=== PATIENT | male | born 1970 | race Hispanic/Latino ===

== ENCOUNTER 2017-10-29 09:54 | Observation (INO) | payer MEDICARE, MEDICAID ==
[2017-10-24 14:52] VITALS: BMI 23.8
--- NOTE | 2017-10-29 13:07 | CP.PCM.PN ---
Subjective - Date & Time of Evaluation Date of Evaluation: 10/29/17 Time of Evaluation: 13:06 - Subjective Subjective: 47 y/o male seen in [facility] prior to right foot surgery. Pt says he is not in any pain and his dressing remains intact since his last visit with Dr. Lorenzo. Confirms NPO status after midnight last night except for a small sip of water with meds this morning. Denies any F/C/N/V/CP/SOB. Understands he may be admitted for observation. Is aware of possible wound vac placement PMHx: DM, atrial fibrillation, CKD s/p transplant PSH: I&D of right foot gas gangrene (10/14/17); renal transplant, several prior reconstructive LE ankle and foot surgeries All: NKDA SocHx: denies EtOH, cigarette or illicit drug use FamHx: denies hx of heart dz, cancer, HTN Objective - Vital Signs/Intake and Output Vital Signs (last 24 hours): Temp Pulse Resp BP Pulse Ox 98.6 F 68 18 121/75 98 10/29/17 12:13 10/29/17 12:23 10/29/17 12:13 10/29/17 12:13 10/29/17 12:13 - Constitutional Appears: Well, Non-toxic, No Acute Distress - Extremities Exam Additional comments: dressing clean/dry/intact to RLE with no strikethrough - Neurological Exam Neurological Exam: Alert, Awake, Oriented x3 - Psychiatric Exam Psychiatric exam: Normal Affect, Normal Mood Assessment and Plan - Assessment and Plan (Free Text) Assessment: 47 y/o male with right foot 4th digit and partial ray gangrene, to go to OR today for partial 4th ray amputation Plan: Pt was seen and examined in [facility] Pt NPO status was confirmed All pre-op testing and clearance in chart Pt has exhausted all conservative treatment at this time and is opting for surgical intervention Pt was explained procedure and post-operative course All pt's questions were answered to satisfaction No guarantees were made Pt understands all risks, benefits and complications of procedure Pt will follow-up with Dr. Lorenzo within 1 week of surgery
--- NOTE | 2017-10-29 13:10 | CP.SDSHP ---
Same Day Surgery H & P - History Proposed Procedure: right foot partial 4th ray amputation with wound vac application Pre-Op Diagnosis: right foot gangrenous 4th digit with gangrenous changes to 4th ray - Previous Medical/Surgical History Endocrine/Metabolic: Diabetes, Renal Disease Pain: 0. No Pain Previous Surgical History: kidney transplant, I&D right foot gas gangrene, several reconstructive ankle and foot surgeries to RLE - Allergies Allergies: Allergies No Known Allergies Allergy (Verified 10/13/17 12:19) - Physical Exam Vital Signs: Vital Signs 10/29/17 10/29/17 12:13 12:23 Temperature 98.6 F Pulse Rate 68 68 Respiratory 18 Rate Blood Pressure 121/75 O2 Sat by Pulse 98 Oximetry Mental Status: Alert & Oriented x3 - {Optional Preform as Required} Integument: Other (right foot gangrene 4th toe - dressing clean dry and intact on arrival) Ortho: Other (no pain to right foot) - Impression Impression: Pt was seen and examined in [facility]. Pt NPO status was confirmed. All pre-op testing and clearance in chart. Pt has exhausted all conservative treatment at this time and is opting for surgical intervention. Pt was explained procedure and post-operative course. All pt's questions were answered to satisfaction. No guarantees were made. Pt understands all risks, benefits and complications of procedure. Pt will follow-up with Dr. Lorenzo within 1 week of surgery - Date & Time Date: 10/29/17 Time: 13:20 Short Stay Discharge - Short Stay Discharge Admitting Diagnosis/Reason for Visit: A48.0 Disposition: TRANS TO OBS Referrals: Odin Babin MD [Primary Care Provider] - Additional Instructions (Diet, Activity): Pt to remain NWB to RLE with use of axillary crutches Pt will remain in house with wound vac in place to R foot Pt will be monitored under observation in hospital Podiatry will follow while in house Upon discharge, pt to follow up with Dr. Lorenzo in his office within one week Progress Note/Discharge Note with Instructions: -Pt to resume medications per medical reconciliation Please keep dressing clean, dry, & intact to surgical site -Use plastic bag over bandage for showering
[2017-10-29] MEDS ORDERED: Bupivacaine 0.5% Inj(30mL) IJ ONE (13:11)
[2017-10-29] MEDS ORDERED: Lidocaine 2% Inj (20ml) ONE (14:32)
[2017-10-29] MEDS ORDERED: Bacitracin Ointment 30 GM TUBE ONE (14:33)
[2017-10-29] MEDS ORDERED: Mineral Oil Light Sterile 25 ml ONE (14:33)
[2017-10-29] MEDS ORDERED: ceFAZolin IV 1 gm in Dextrose 2 GM/100 ML BAG IVPB ONE (14:33)
[2017-10-29] MEDS ORDERED: Bupivacaine 0.5% Inj(30mL) ONE (14:33)
[2017-10-29] MEDS ORDERED: Midazolam 2 MG/2 ML VIAL ONE (14:40)
[2017-10-29] MEDS ORDERED: Propofol 10 mg/ml Inj (20 ML) ONE (14:40)
[2017-10-29] MEDS ORDERED: Lactated Ringer's 1,000 ML IV ONE ×2 (14:53→17:50)
[2017-10-29] MEDS ORDERED: ePHEDrine 50 mg/ml Inj ONE (15:48)
[2017-10-29] MEDS ORDERED: Oxycodone/Acetaminophen 5/325 mg Tab PO PRN ×2 (16:01)
--- NOTE | 2017-10-29 16:06 | PCM.SURG1 ---
Surgeon's Initial Post Op Note - Surgeon's Notes Surgeon: Dr. Ilya Lorenzo DPM Editorial Cartoonist: Dr. Jacqueline Hartley DPM PGY-1; Dr. Xiomy Jones DPM PGY-1 Mohit Aragon MS-4 Type of Anesthesia: IV Sedation, Local Anesthesia Administered By: Dr. Ric ROSE Pre-Operative Diagnosis: Right forefoot infection with Osteomyelitis Operative Findings: See dictation. M: Wound vac. I: 13 cc of 0.5% marcaine plain - pre-op. T: 24 min Post-Operative Diagnosis: Same Operation Performed: Right partial 4th ray resection with removal of all non- viable soft tissue and bone with application of wound vac Specimen/Specimens Removed: 4th digit and metatarsal head. Proximal margin: Metatarsal neck. Deep wound cultures Estimated Blood Loss: EBL {In ML}: 5 Blood Products Given: N/A Drains Used: No Drains Post-Op Condition: Good Date of Surgery/Procedure: 10/29/17 Time of Surgery/Procedure: 16:07
--- NOTE | 2017-10-29 17:51 | RAD ---
PROCEDURE: Right Foot Radiographs. HISTORY: s/p right foot surgery COMPARISON: 10/09/2016 FINDINGS: BONES: Neuropathic/Charcot foot and ankle. Evidence of triple arthrodesis identified. There is evidence of hardware failure, disruption of the plate anchored to the distal femur at and tarsal bones. This represents a new finding compared to the prior study. JOINTS: Chronic findings/neuropathic foot. SOFT TISSUES: Normal. OTHER FINDINGS: None. IMPRESSION: Hardware failure not seen previously. Soy remarked
--- NOTE | 2017-10-29 19:44 | CP.PCM.HP ---
History of Present Illness - History of Present Illness History of Present Illness: 47 y/o male with PMHx of DM type 1, ESRD secondary to DM s/p kidney transplant 6 years ago, HTN, hypercholesterolemia, GERD admitted with Right forefoot infection with Osteomyelitis, now s/p right partial 4th ray resection with removal of all non-viable soft tissue and bone with application of wound vac by podiatry team on POD #0. Patient ween and examined at bedside after surgery, denies pain at this evaluation. Denies chest pain, SOB, N/V, abdominal pain or other complains. Tolerating PO after surgery. Urinating after surgery. Not yet passing gases and/or bowel movements after surgery. Full CODE PMD: at [facility]/Dr. Talley: [phone] Boiler House Operator: Dr. Silva Diabetic doctor: Dr. Kraft PMHx: DM type 1, ESRD secondary to DM s/p kidney transplant 6 years ago, HTN, hypercholesterolemia, GERD PSH: I&D of right foot gas gangrene (10/14/17); renal transplant, several prior reconstructive LE ankle and foot surgeries All: NKDA SocHx: Denies tabacco use, ETOH and/or illicit drugs FamHx: Mother: /Breast cancer, Father: /Lung cancer Meds: as per [facility] records Present on Admission - Present on Admission Any Indicators Present on Admission: No History of DVT/PE: No History of Uncontrolled Diabetes: No Urinary Catheter: No Decubitus Ulcer Present: No Review of Systems - Review of Systems All systems: reviewed and no additional remarkable complaints except (as per HPI ) Past Patient History - Infectious Disease Hx of Infectious Diseases: None - Tetanus Immunizations Tetanus Immunization: Unknown - Past Medical History & Family History Past Medical History?: Yes - Past Social History Smoking Status: Never Smoked - CARDIAC Hx Cardiac Disorders: Yes Hx Hypercholesterolemia: Yes Hx Hypertension: Yes Hx Peripheral Edema: Yes Hx Peripheral Vascular Disease: Yes Other/Comment: cva-1 month ago - PULMONARY Hx Respiratory Disorders: No - NEUROLOGICAL Hx Neurological Disorder: No Hx Seizures: No (denies) - HEENT Hx HEENT Problems: Yes (EYE SX O.U) - RENAL Hx Chronic Kidney Disease: Yes ([employer] TRANSPL[employer] 2010) Hx Renal Failure: Yes Other/Comment: RENAL DISEASE(KIDEY TRANSPLANT) 2011 - ENDOCRINE/METABOLIC Hx Endocrine Disorders: Yes Hx Diabetes Mellitus Type 1: Yes (since 13yo.) Hx Diabetes Mellitus Type 2: Yes - HEMATOLOGICAL/ONCOLOGICAL Hx Blood Disorders: No Hx Blood Transfusions: No - INTEGUMENTARY Hx Dermatological Problems: Yes Other/Comment: SCARRING TO BILATERAL FOOT. - MUSCULOSKELETAL/RHEUMATOLOGICAL Hx Musculoskeletal Disorders: Yes (RIGHT FOOT AND LEFT FOOT SX-R FOOT ORIF,) Hx Arthritis: Yes Hx Back Pain: Yes Hx Falls: No Hx Osteoarthritis: Yes Other/Comment: CHARCOT FOOT - GASTROINTESTINAL Hx Gastrointestinal Disorders: Yes Hx Gastroesophageal Reflux: Yes (GERD) - GENITOURINARY/GYNECOLOGICAL Hx Genitourinary Disorders: Yes Hx Hematuria: Yes - PSYCHIATRIC Hx Emotional Abuse: No Hx Physical Abuse: No - SURGICAL HISTORY Hx Surgeries: Yes Hx Eye Surgery: Yes Hx Kidney Transplant: Yes (2010) Hx Musculoskeletal Surgery: Yes (RIGHT FOOT AND ANKLE X7) Hx Open Reduction Internal Fixation: (RIGHT FT W/ SCREW FIXATION) Hx Orthopedic Surgery: Yes (LEFT & RIGHT FOOT SURGERY ) Hx Tonsillectomy: Yes Other/Comment: Right foot - ANESTHESIA Hx Anesthesia: Yes Hx Anesthesia Reactions: No Hx Malignant Hyperthermia: No Has any member of the family had a problem w/ anesthesia?: No Meds Allergies/Adverse Reactions: Allergies Allergy/AdvReac Type Severity Reaction Status Date / Time No Known Allergies Allergy Verified 10/13/17 12:19 Physical Exam - Constitutional Appears: Non-toxic, No Acute Distress - Eye Exam Eye Exam: Normal appearance - ENT Exam ENT Exam: Mucous Membranes Moist - Respiratory Exam Respiratory Exam: Clear to Auscultation Bilateral, NORMAL BREATHING PATTERN. absent: Rales, Rhonchi, Wheezes, Respiratory Distress - Cardiovascular Exam Cardiovascular Exam: REGULAR RHYTHM, RRR, +S1, +S2. absent: Gallop, Rubs - GI/Abdominal Exam GI & Abdominal Exam: Normal Bowel Sounds, Soft. absent: Guarding, Rebound, Rigid, Tenderness - Extremities Exam Extremities exam: Negative for: calf tenderness, pedal edema - Neurological Exam Neurological exam: Alert, Oriented x3 - Psychiatric Exam Psychiatric exam: Normal Affect, Normal Mood - Skin Skin Exam: Dry, Intact, Pallor Results - Vital Signs Recent Vital Signs: Last Vital Signs Temp 97.7 F 10/29/17 19:18 Pulse 76 10/29/17 19:18 Resp 20 04/02/18 19:18 BP 164/96 H 10/29/17 19:18 Pulse Ox 96 10/29/17 19:18 - Labs Labs: Laboratory Results - last 24 hr 10/29/17 10/29/17 11:42 16:06 POC Glucose (mg/dL) 148 H 177 H Assessment & Plan - Assessment and Plan (Free Text) Assessment: 47 y/o male with PMHx of DM type 1, ESRD secondary to DM s/p kidney transplant 6 years ago, HTN, hypercholesterolemia, GERD admitted with Right forefoot infection with Osteomyelitis, now s/p scheduled right partial 4th ray resection with removal of all non-viable soft tissue and bone with application of wound vac. Plan: S/P right partial 4th ray resection -MedSur unit -with removal of all non-viable soft tissue and bone with application of wound vac by podiatry team -check VS Q8 -pain control -daily wound assessment and care by podiatry team -no on prophylactic antibiotics for now as per podiatry team -F/U wound culture results -start DVT prophylaxis tomorrow morning as per podiatry team recommendations -F/U CBC and BMP in AM -incentive spirometer Diabetes Mellitus type 1 -started at age 13 -insulin dependent -accucheck ACHS -resume home insulin -diabetic diet -hypoglycemic protocol S/P Kidney transplant -c/w home immunosuppresant therapy -c/w Tacrolimus and Mycophenolate BID -c/w prednisone 5 mg PO -f/u BMP in AM HTN -c/w home propranolol BID -f/u BP DVT prophylaxis -start DVT prophylaxis tomorrow morning as per podiatry team recommendations -based on renal function in BMP will start Lovenox or Heparin -SCDs for now - Date & Time Date: 10/29/17 Time: 19:45
[2017-10-29] MEDS ORDERED: Glucagon Recombinant 1 mg Inj IM PRN (19:46)
[2017-10-29] MEDS ORDERED: Dextrose 50% SYRINGE Inj (50 ml) IV PRN (19:46)
[2017-10-29] MEDS ORDERED: Pneumococcal 23-Valent Vaccine IM ONE (20:00)
[2017-10-29] MEDS ORDERED: Calcium-Vit D 500 mg-200 Units Tab UD PO SCH (20:00)
[2017-10-29] MEDS: Insulin Detemir 100 Units/ml Inj SC SCH (20:50)
[2017-10-29] MEDS ORDERED: MYCOPHENOLATE SODIUM PO SCH (21:00)
[2017-10-29 21:51] VITALS: RESP 20
[2017-10-30 06:47] LABS: BASO # 0.1 K/uL (0.0-0.2); BASO % 0.8 % (0.0-2.0); EOS # 0.1 K/uL (0.0-0.7); EOS % 1.7 % (0.0-4.0); HEMOGLOBIN 10.7 g/dL (12.0-18.0); LYMPH # 1.7 K/uL (1.0-4.3); MEAN CELL VOLUME 81.8 fl (80.0-94.0); MEAN CORPUSCULAR HEMOGLOBIN 26.7 pg (27.0-31.0); MEAN CORPUSCULAR HGB CONC 32.6 g/dL (33.0-37.0); MONO # 0.6 K/uL (0.0-0.8); NEUT % 66.5 % (50.0-75.0); RED CELL DISTRIBUTION WIDTH 16.3 % (11.5-14.5); WHITE BLOOD COUNT 7.5 K/uL (4.8-10.8)
[2017-10-30 07:03] LABS: CALCIUM 9.5 mg/dL (8.4-10.2)
--- NOTE | 2017-10-30 08:24 | CP.PCM.PN ---
Subjective - Date & Time of Evaluation Date of Evaluation: 10/30/17 Time of Evaluation: 08:24 - Subjective Subjective: 47 y/o male seen and examined at bedside this morning, 1 day s/p right foot partial 4th ray amputation. Pt resting comfortably in bed in NAD. Says he slept well and denies any events overnight. Denies F/C/N/V/CP/SOB. States he has no pain in the right foot. Wound vac has been running without any difficulty and he says it has remained in place since his surgery. Objective - Vital Signs/Intake and Output Vital Signs (last 24 hours): Temp Pulse Resp BP Pulse Ox 98.5 F 74 20 131/81 99 10/30/17 08:22 10/30/17 08:22 10/30/17 08:22 10/30/17 08:22 10/30/17 08:22 - Medications Medications: Current Medications Acetaminophen (Tylenol 325mg Tab) 650 mg PO Q4 PRN PRN Reason: Pain, Mild (1-3) Aspirin (Ecotrin) 81 mg PO QPM [facility] Atorvastatin Calcium (Lipitor) 40 mg PO DAILY [facility] Calcium/Vitamin D (Oyster Shell Calcium/Vitamin D 500 Mg-200 Iu) 1 tab PO BID [facility] Clopidogrel Bisulfate (Plavix) 75 mg PO DAILY [facility] Dextrose (Dextrose 50% Inj) 0 ml IV STAT PRN; Protocol PRN Reason: Hypoglycemia Protocol Dextrose (Glutose 15) 0 gm PO ONCE PRN; Protocol PRN Reason: Hypoglycemia Protocol Glucagon (Glucagen Diagnostic Kit) 0 mg IM STAT PRN; Protocol PRN Reason: Hypoglycemia Protocol Heparin Sodium (Porcine) (Heparin) 5,000 units SC Q12 [facility] PRN Reason: Protocol Home Med (Mycophenolate Sodium [Myfortic]) 2 tab PO BID [facility] Insulin Detemir (Levemir) 20 units SC BID [facility] Last Admin: 10/29/17 20:50 Dose: 20 units Insulin Human Lispro (Humalog) 7 units SC BID [facility] Multivitamins/Minerals (Therapeutic-M Tab) 1 tab PO DAILY [facility] Oxycodone/Acetaminophen (Percocet 5/325 Mg Tab) 1 tab PO Q4 PRN PRN Reason: Pain, moderate (4-7) Stop: 11/01/17 16:02 Oxycodone/Acetaminophen (Percocet 5/325 Mg Tab) 2 tab PO Q4 PRN PRN Reason: Pain, severe (8-10) Stop: 11/01/17 16:02 Prednisone (Prednisone Tab) 5 mg PO DAILY [facility] Propranolol HCl (Inderal) 10 mg PO HS [facility] Last Admin: 10/29/17 21:05 Dose: 10 mg Propranolol HCl (Inderal) 10 mg PO AC [facility] Tacrolimus (Prograf Cap) 2 mg PO BID [facility] Last Admin: 10/29/17 20:53 Dose: 2 mg - Labs Labs: 10/30/17 05:30 10/30/17 05:30 - Constitutional Appears: Well, Non-toxic, No Acute Distress - Extremities Exam Additional comments: Dressing clean dry and intact to R foot Wound vac running on continuous 125mm Hg Wound vac drainage output at 10cc - Neurological Exam Neurological Exam: Alert, Awake, Oriented x3 - Psychiatric Exam Psychiatric exam: Normal Affect, Normal Mood Assessment and Plan - Assessment and Plan (Free Text) Assessment: 47 y/o male 1 day s/p right foot partial 4th ray amputation with wound vac application Plan: Pt seen and evaluated at bedside Labs and vitals reviewed- afebrile, WBC 7.5 Wound vac to remain in place today - continue 125mmHg continuous pressure Vac to be changed q48-72 hours by visiting nurses Pt stable for discharge from podiatry standpoint Pt to keep dressing clean dry and intact with vac running at all times until VNS comes to change it Pt to follow up with Dr. Lorenzo in his office within 1 week of discharge
--- NOTE | 2017-10-30 08:30 | CP.PCM.PN ---
Subjective - Date & Time of Evaluation Date of Evaluation: 10/30/17 Time of Evaluation: 08:30 - Subjective Subjective: Patient seen and examined this morning at bedside, sleeping comfortable on bed, no acute overnight event. S/p SDS right foot partial 4th ray amputation with wound vac application on 10/29. Patient denies pain, chills, nausea, vomiting, states good appetite, no chest pain or abdominal pain, palpitations. Objective - Vital Signs/Intake and Output Vital Signs (last 24 hours): Temp Pulse Resp BP Pulse Ox 98.5 F 74 20 131/81 99 10/30/17 08:22 10/30/17 08:22 10/30/17 08:22 10/30/17 08:22 10/30/17 08:22 - Medications Medications: Current Medications Acetaminophen (Tylenol 325mg Tab) 650 mg PO Q4 PRN PRN Reason: Pain, Mild (1-3) Aspirin (Ecotrin) 81 mg PO QPM [facility] Atorvastatin Calcium (Lipitor) 40 mg PO DAILY [facility] Calcium/Vitamin D (Oyster Shell Calcium/Vitamin D 500 Mg-200 Iu) 1 tab PO BID [facility] Clopidogrel Bisulfate (Plavix) 75 mg PO DAILY [facility] Dextrose (Dextrose 50% Inj) 0 ml IV STAT PRN; Protocol PRN Reason: Hypoglycemia Protocol Dextrose (Glutose 15) 0 gm PO ONCE PRN; Protocol PRN Reason: Hypoglycemia Protocol Glucagon (Glucagen Diagnostic Kit) 0 mg IM STAT PRN; Protocol PRN Reason: Hypoglycemia Protocol Heparin Sodium (Porcine) (Heparin) 5,000 units SC Q12 [facility] PRN Reason: Protocol Home Med (Mycophenolate Sodium [Myfortic]) 2 tab PO BID [facility] Insulin Detemir (Levemir) 20 units SC BID [facility] Last Admin: 10/29/17 20:50 Dose: 20 units Insulin Human Lispro (Humalog) 7 units SC BID [facility] Multivitamins/Minerals (Therapeutic-M Tab) 1 tab PO DAILY [facility] Oxycodone/Acetaminophen (Percocet 5/325 Mg Tab) 1 tab PO Q4 PRN PRN Reason: Pain, moderate (4-7) Stop: 11/01/17 16:02 Oxycodone/Acetaminophen (Percocet 5/325 Mg Tab) 2 tab PO Q4 PRN PRN Reason: Pain, severe (8-10) Stop: 04/05/18 16:02 Prednisone (Prednisone Tab) 5 mg PO DAILY [facility] Propranolol HCl (Inderal) 10 mg PO HS [facility] Last Admin: 10/29/17 21:05 Dose: 10 mg Propranolol HCl (Inderal) 10 mg PO AC [facility] Tacrolimus (Prograf Cap) 2 mg PO BID [facility] Last Admin: 10/29/17 20:53 Dose: 2 mg - Labs Labs: 10/30/17 05:30 10/30/17 05:30 - Constitutional Appears: Well, No Acute Distress - Head Exam Head Exam: NORMAL INSPECTION - Eye Exam Eye Exam: EOMI, PERRL - Respiratory Exam Respiratory Exam: Clear to Ausculation Bilateral, NORMAL BREATHING PATTERN. absent: Rales, Rhonchi, Wheezes - Cardiovascular Exam Cardiovascular Exam: REGULAR RHYTHM, +S1, +S2. absent: Tachycardia - GI/Abdominal Exam GI & Abdominal Exam: Soft, Normal Bowel Sounds. absent: Distended, Tenderness - Extremities Exam Extremities Exam: absent: Calf Tenderness Additional comments: Right foot dressing clean, intact. Wound vac in place, functioning well. - Neurological Exam Neurological Exam: Awake, CN II-XII Intact, Oriented x3 - Psychiatric Exam Psychiatric exam: Normal Affect Assessment and Plan - Assessment and Plan (Free Text) Assessment: 47 y/o male with PMHx of DM type 1, ESRD secondary to DM s/p kidney transplant 6 years ago, HTN, hypercholesterolemia, GERD admitted with Right forefoot infection with Osteomyelitis, now s/p scheduled right partial 4th ray resection with removal of all non-viable soft tissue and bone with application of wound vac. POD 1. Plan: 1- S/P right partial 4th ray resection - removal of all non-viable soft tissue and bone with application of wound vac by podiatry team - pain control with Percocet - daily wound assessment and care by podiatry team - no on prophylactic antibiotics for now as per podiatry team - F/U wound culture results - start DVT prophylaxis today as per podiatry team recommendations - incentive spirometer - CBC: wbc 7.5, H/H 10.7/32.7 Plt 601 2- Diabetes Mellitus type 1 -accucheck ACHS -resume home insulin -diabetic diet -hypoglycemic protocol 3- S/P Kidney transplant -c/w home immunosuppresant therapy -c/w Tacrolimus and Mycophenolate BID -c/w prednisone 5 mg PO -BUN/Creatinine: 25/1.8 4- HTN, controlled -c/w home propranolol BID -f/u BP 5 DVT prophylaxis - Start Heparin 5000 units SC Q12
[2017-10-30] MEDS: Calcium-Vit D 500 mg-200 Units Tab UD PO SCH ×2 (08:33→17:02)
[2017-10-30] MEDS: Insulin Lispro (humaLOG) 100 Units/ml Inj SC SCH ×2 (08:34→17:02)
[2017-10-30] MEDS ORDERED: Multivitamin With Minerals Tab PO SCH (09:00)
[2017-10-30] MEDS: Insulin Detemir 100 Units/ml Inj SC SCH ×2 (11:56→17:02)
[2017-10-30 14:11] VITALS: PULSE 73
--- NOTE | 2017-10-30 16:14 | CP.PCM.DIS ---
Provider - Provider Date of Admission: 10/29/17 17:26 Attending physician: Renetta Peres MD Primary care physician: Odin Babin MD Time Spent in preparation of Discharge (in minutes): 20 Diagnosis - Discharge Diagnosis (1) Osteomyelitis of foot Status: Acute Hospital Course - Lab Results Lab Results: Most Recent Lab Values WBC 7.5 K/uL (4.8-10.8) 10/30/17 05:30 RBC 4.00 Mil/uL (4.40-5.90) L 10/30/17 05:30 Hgb 10.7 g/dL (12.0-18.0) L 10/30/17 05:30 Hct 32.7 % (35.0-51.0) L 10/30/17 05:30 MCV 81.8 fl (80.0-94.0) 10/30/17 05:30 MCH 26.7 pg (27.0-31.0) L 10/30/17 05:30 MCHC 32.6 g/dL (33.0-37.0) L 10/30/17 05:30 RDW 16.3 % (11.5-14.5) H 10/30/17 05:30 Plt Count 601 K/uL (130-400) H D 10/30/17 05:30 MPV 8.0 fl (7.2-11.7) 10/30/17 05:30 Neut % (Auto) 66.5 % (50.0-75.0) 10/30/17 05:30 Lymph % (Auto) 23.0 % (20.0-40.0) 10/30/17 05:30 [place] % (Auto) 8.0 % (0.0-10.0) 10/30/17 05:30 Eos % (Auto) 1.7 % (0.0-4.0) 10/30/17 05:30 Baso % (Auto) 0.8 % (0.0-2.0) 10/30/17 05:30 Neut # (Auto) 5.0 K/uL (1.8-7.0) 10/30/17 05:30 Lymph # (Auto) 1.7 K/uL (1.0-4.3) 10/30/17 05:30 [place] # (Auto) 0.6 K/uL (0.0-0.8) 10/30/17 05:30 Eos # (Auto) 0.1 K/uL (0.0-0.7) 10/30/17 05:30 Baso # (Auto) 0.1 K/uL (0.0-0.2) 10/30/17 05:30 Sodium 139 mmol/l (132-148) 10/30/17 05:30 Potassium 4.8 MMOL/L (3.6-5.0) 10/30/17 05:30 Chloride 100 mmol/L (98-107) 10/30/17 05:30 Carbon Dioxide 33 mmol/L (22-30) H 10/30/17 05:30 Anion Gap 11 (10-20) 10/30/17 05:30 BUN 25 mg/dl (9-20) H 10/30/17 05:30 Creatinine 1.8 mg/dl (0.8-1.5) H 10/30/17 05:30 Est GFR ( Amer) 49 10/30/17 05:30 Est GFR (Non-Af Amer) 41 10/30/17 05:30 POC Glucose (mg/dL) 69 mg/dL (65-110) 10/30/17 12:04 Random Glucose 124 mg/dL (75-110) H 10/30/17 05:30 Calcium 9.5 mg/dL (8.4-10.2) 10/30/17 05:30 - Hospital Course Hospital Course: 47 y/o male with PMHx of DM type 1, ESRD secondary to DM s/p kidney transplant 6 years ago, HTN, hypercholesterolemia, GERD admitted with Right forefoot infection with Osteomyelitis, now s/p right partial 4th ray resection with removal of all non-viable soft tissue and bone. Pt stable. Home PT eval. Pt to follow up in 1 week with podiatry: Dr. Lorenzo. Discharge Exam - Head Exam Head Exam: NORMAL INSPECTION Discharge Plan - Follow Up Plan Condition: GOOD Disposition: HOME/ ROUTINE Patient education suggested?: Yes Instructions: Amputation of the Foot or Toe, Negative Pressure Wound Therapy Additional Instructions: Pt to remain NWB to RLE with use of axillary crutches Pt will remain in house with wound vac in place to R foot Pt will be monitored under observation in hospital Podiatry will follow while in house Upon discharge, pt to follow up with Dr. Lorenzo in his office within one week Home PT evaluation Pt declined pain meds Referrals: Odin Babin MD [Primary Care Provider] - Ilya Lorenzo DPM [Staff Provider] -
[2017-10-30 16:57] VITALS: BP 140/86; TEMP 97.9; O2SAT 97
--- NOTE | 2017-10-31 23:51 | OP ---
PROCEDURE DATE: 10/29/2017 PREOPERATIVE DIAGNOSIS: Right fourth partial ray gangrene. POSTOPERATIVE DIAGNOSIS: Right fourth partial ray gangrene. NAME OF PROCEDURE: Right foot partial fourth ray resection with removal of all nonviable soft tissue and removal of bone with application of wound vacuum assisted closure. SURGEON: Ilya Lorenzo DPM ASSISTANTS: Jacqueline Hartley DPM, PGY1 and Clement Jones DPM, PGY1. TYPE OF ANESTHESIA: IV sedation with local. ANESTHESIA ADMINISTERED BY: Yamel Larios MD INDICATION: The patient is a 47-year-old male with the above diagnosis. The patient has exhausted all conservative treatment at this time and now requires surgical intervention. The patient signed the consent after careful explanation of risks, benefits, complications, and alternatives for the surgical procedure. N.p.o. status was confirmed prior to taking the patient to the operating room. No guarantees were given nor implied. PREPARATION: The patient was brought into the operating room table and placed on the table in the supine position. A time-out was performed for identification of the correct patient and the procedure. The patient received a total of 13 mL of 0.5% Marcaine plain in the local V block fashion. Once the local anesthesia was achieved, the right foot was then prepped and draped in a normal sterile manner and procedure began. Ankle tourniquet was applied to the right ankle prior to starting the procedure. DESCRIPTION OF PROCEDURE: Attention was directed to the patient's right foot in which with the use of #15 blade, all circumferential incision was made around the fourth ray on the periphery of the necrotic tissue. Incision was deepened through the subcutaneous tissue using the same blade down to the level of the MTPJ. At this time, the fourth digit was disarticulated at the level of MTPJ. Next, utilizing a periosteal elevator, all the periosteal tissue was carefully dissected off the metatarsal head. At this time using a sagittal saw, the fourth metatarsal head was resected with the dorsal distal to plantar proximal angle and was then passed off the field and sent to pathology along with the fourth digit with metatarsal neck was resected and was sent to pathology for the proximal margin. All the remaining nonviable necrotic tissue was removed from the surgical site and was passed off the operating field to the pathology. was used to remove excess nonviable tissue from the surgical site and site was then flushed with bacitracin-induced pulse lavage. Deep wound cultures were taken at this time and was sent off the operative field. A wound VAC was applied to the surgical site at the time using black foam and Tegaderm tape. The surgical site was then dressed with sterile gauze and Kerlix. Tourniquet was deflated at 24 minutes. POSTOPERATIVE CONDITION: The patient tolerated the anesthesia and procedure well and was escorted to the recovery room with vital signs stable and neurovascular status intact to the right foot. The patient is nonweightbearing to the right lower extremity. The patient will be admitted to the floor where Podiatry will follow up the patient closely. Upon discharge, the patient is to follow up with Dr. Ilya Lorenzo in his office. Jacqueline Hartley DPM Ilya Lorenzo DPM
== END 2017-10-30 18:20 | disposition home health service (06) ==
LOC: H.OPSURG 09:54 → H.MEDSURG1 17:26
PROVIDERS: ADMIT Family Medicine; ATTEND Family Medicine
DX: E10.69 Type 1 diabetes mellitus with other specified complication (principal); M86.171 Other acute osteomyelitis, right ankle and foot; E10.51 Type 1 diabetes mellitus with diabetic peripheral angiopathy without gangrene; E10.610 Type 1 diabetes mellitus with diabetic neuropathic arthropathy; E78.00 Pure hypercholesterolemia, unspecified; I12.0 Hypertensive chronic kidney disease with stage 5 chronic kidney disease or end stage renal disease; K21.9 Gastro-esophageal reflux disease without esophagitis; N18.6 End stage renal disease; Z79.4 Long term (current) use of insulin; Z80.1 Family history of malignant neoplasm of trachea, bronchus and lung; Z80.3 Family history of malignant neoplasm of breast; Z86.73 Personal history of transient ischemic attack (TIA), and cerebral infarction without residual deficits; Z94.0 Kidney transplant status; A48.0 Gas gangrene; M19.90 Unspecified osteoarthritis, unspecified site; E10.22 Type 1 diabetes mellitus with diabetic chronic kidney disease; Z23 Encounter for immunization
CPT/HCPCS: 28810; 36415; 73630; 80048; 82948; 85025; 87070; 88304; 88305; 90732; 97161; 97605; G0009; G0378; G8978; G8979; J0690; J1644; J2001; J2250; J2270; J2405; J2704; J2765; J3010; J7030; J7120; J7507

== ENCOUNTER 2017-12-21 08:23 | Day surgery (SDC) | payer MEDICARE, MEDICAID ==
[2017-10-24 14:52] VITALS: BMI 23.8
--- NOTE | 2017-12-21 09:22 | CP.SDSHP ---
Same Day Surgery H & P - History Proposed Procedure: Right 5th digit arthroplasty with complex wound closure, wound debridement with PuraPly graft Pre-Op Diagnosis: Right foot nonhealing wound - Previous Medical/Surgical History Cardiac: Hypertension Endocrine/Metabolic: Diabetes, Renal Disease Misc: Other (HLD) Previous Surgical History: kidney transplant, I&D right foot gas gangrene, several reconstructive ankle and foot surgeries to RLE - Allergies Allergies: Allergies No Known Allergies Allergy (Verified 12/21/17 08:33) - Current Medications Current Medications: see chart - Physical Exam Vital Signs: Vital Signs 12/21/17 12/21/17 08:58 09:04 Temperature 98.1 F Pulse Rate 88 88 Respiratory 14 Rate Blood Pressure 121/70 O2 Sat by Pulse 98 Oximetry Mental Status: Alert & Oriented x3 Neuro: WNL Heart: WNL Lungs: WNL GI: WNL - {Optional Preform as Required} Ortho: Other (No pain on palpation, dressing to right foot clean/dry/intact) - Impression Impression: Pt was seen and examined in SDS. Pt NPO status was confirmed. All pre-op testing and clearance in chart. Pt has exhausted all conservative treatment at this time and is opting for surgical intervention. Pt was explained procedure and post-operative course. All pt's questions were answered to satisfaction. No guarantees were made. Pt understands all risks, benefits and complications of procedure. Pt will follow-up with Dr. Lorenzo within 1 week of surgery Pt. Evaluated Today:Candidate for Anesthesia & Procedure: Yes - Date & Time Date: 12/21/17 Time: 09:22 Short Stay Discharge - Short Stay Discharge Admitting Diagnosis/Reason for Visit: T81.31XA, M20.41, E11.62 Disposition: HOME/ ROUTINE Referrals: Odin Babin MD [Primary Care Provider] - Follow-up: Follow up with Dr. Lorenzo in office Sunday12/26/17 Additional Instructions (Diet, Activity): -Patient in good/stable condition for discharge home -Pt to resume medications per medical reconciliation -Resume regular diet Please keep dressing clean, dry, & intact to surgical site -Use plastic bag over bandage for showering -Wear post op shoe at all times when ambulating -Call clinic if you see signs of infection (redness, swelling, malodor) -Please make an appointment to see Dr. Lorenzo within 1 week for post-op check Progress Note/Discharge Note with Instructions: - Patient evaluated bedside in recovery s/p surgical procedure. - After surgical procedure patient in NAD - (+) Void, (+) Appetite - Capillary refill time <3s and NVSI intact. - Patient denies complaints at this time - Post operative instructions and plan of care explained to patient at length. - Pt. acknowledges understanding. - Patient stable for DC per podiatric surgery
--- NOTE | 2017-12-21 09:25 | CP.PCM.PN ---
Subjective - Date & Time of Evaluation Date of Evaluation: 12/21/17 Time of Evaluation: 09:22 - Subjective Subjective: Podiatry - Dr. Lorenzo 47 y/o male seen in [facility] for pre-operative evaluation for right foot surgery with Dr. Lorenzo this AM. At present, patient denies any pain to his right foot today. Patient has remained intact since his last appointment with Dr. Lorenzo on Sunday. NPO confirmed; states he did not take his blood pressure medication this AM. Denies N/V/F/D/C/SOB/SINHA/dizziness. PMHx: DM, atrial fibrillation, CKD s/p transplant PSH: I&D of right foot gas gangrene (10/14/17); renal transplant, several prior reconstructive LE ankle and foot surgeries All: NKDA SocHx: denies EtOH, cigarette or illicit drug use FamHx: denies hx of heart dz, cancer, HTN Objective - Vital Signs/Intake and Output Vital Signs (last 24 hours): Temp Pulse Resp BP Pulse Ox 98.1 F 88 14 121/70 98 12/21/17 08:58 12/21/17 09:04 12/21/17 08:58 12/21/17 08:58 12/21/17 08:58 - Constitutional Appears: Well, Non-toxic, No Acute Distress - Extremities Exam Additional comments: Dressing to right foot clean/dry/intact - Neurological Exam Neurological Exam: Alert, Awake, Oriented x3 - Psychiatric Exam Psychiatric exam: Normal Affect, Normal Mood Assessment and Plan - Assessment and Plan (Free Text) Assessment: 47 year old male with nonhealing wound right foot Plan: Pt was seen and examined in [facility] Pt NPO status was confirmed All Pre-op testing and clearance was in the chart Pt has exhausted all conservative treatment at this time and is opting for surgical intervention Pt was explained procedure and post-operative course All pt's questions were answered to satisfaction No guarantees were made Pt understands all risks, benefits and complications of procedure Pt will follow-up with Dr. Lorenzo in office
[2017-12-21] MEDS ORDERED: ceFAZolin IV 2 gm in Dextrose 2 GM/50 ML BAG IVPB ONE (09:26)
[2017-12-21] MEDS ORDERED: Bupivacaine 0.5% Inj(30mL) IJ ONE ×3 (09:26→13:00)
[2017-12-21] MEDS ORDERED: Lidocaine 1% Inj (20ml) IJ ONE (09:26)
[2017-12-21] MEDS ORDERED: Dextrose 5%/0.9% NS 1,000 ML IV SCH (09:30)
[2017-12-21] MEDS ORDERED: Lidocaine 2% Inj (20ml) ONE (10:01)
[2017-12-21] MEDS ORDERED: Bupivacaine HCl 0.5% PF (30 ml) Inj ONE (10:01)
[2017-12-21 11:52] LABS: BASO # 0.1 K/uL (0.0-0.2); BASO % 0.9 % (0.0-2.0); EOS # 0.5 K/uL (0.0-0.7); EOS % 7.3 % (0.0-4.0); HEMOGLOBIN 10.7 g/dL (12.0-18.0); LYMPH # 1.8 K/uL (1.0-4.3); LYMPH % 24.2 % (20.0-40.0); MEAN CELL VOLUME 81.4 fl (80.0-94.0); MEAN CORPUSCULAR HEMOGLOBIN 26.2 pg (27.0-31.0); MEAN CORPUSCULAR HGB CONC 32.2 g/dL (33.0-37.0); MEAN PLATELET VOLUME 8.3 fl (7.2-11.7); MONO # 0.6 K/uL (0.0-0.8); MONO % 7.9 % (0.0-10.0); NEUT # 4.4 K/uL (1.8-7.0); NEUT % 59.7 % (50.0-75.0); RBC 4.09 Mil/uL (4.40-5.90); RED CELL DISTRIBUTION WIDTH 16.1 % (11.5-14.5); WHITE BLOOD COUNT 7.4 K/uL (4.8-10.8)
[2017-12-21 12:11] LABS: PROTHROMBIN TIME 10.5 Seconds (9.8-13.1)
[2017-12-21] MEDS ORDERED: ePHEDrine 50 mg/ml Inj ONE (12:46)
[2017-12-21] MEDS ORDERED: Propofol 10 mg/ml Inj (20 ML) ONE ×2 (12:46→12:53)
[2017-12-21] MEDS ORDERED: Midazolam 2 MG/2 ML VIAL ONE (12:47)
[2017-12-21] MEDS ORDERED: Lactated Ringer's 1,000 ML IV ONE ×2 (13:00→15:00)
[2017-12-21] MEDS ORDERED: Oxycodone/Acetaminophen 5/325 mg Tab PO PRN ×2 (14:30)
--- NOTE | 2017-12-21 14:32 | PCM.SURG1 ---
Surgeon's Initial Post Op Note - Surgeon's Notes Surgeon: Dr. Lorenzo Digital Sales Manager: Marybeth Bermudez PGY1, Marybeth Kelly PGY1 Type of Anesthesia: IV Sedation, Local (17cc 0.5% marcaine plain) Anesthesia Administered By: Dr. Castellano Pre-Operative Diagnosis: 1) Right foot nonhealing diabetic ulceration. 2) Right foot surgical wound Operative Findings: See operative report. Materials: PuraPly 6 x 9 cm, 3-0 nylon, 4-0 nylon, 4-0 vicryl Post-Operative Diagnosis: Same Operation Performed: 1) Right foot wound debridement with application of allograft. 2) Right foot 5th digit arthroplasty. 3) Right foot complex wound closure Specimen/Specimens Removed: none Estimated Blood Loss: EBL {In ML}: 20 Blood Products Given: N/A Drains Used: No Drains Post-Op Condition: Good Date of Surgery/Procedure: 12/21/17 Time of Surgery/Procedure: 14:28
[2017-12-21] MEDS ORDERED: HYDROmorphone 0.5 mg/0.5 ml ISec IVP PRN (14:36)
--- NOTE | 2017-12-21 15:40 | RAD ---
PROCEDURE: Right Foot Radiographs. HISTORY: s/p right 5th digit hammertoe correction COMPARISON: 10/29/2017. FINDINGS: BONES: There is redemonstration of neuropathic/Charcot foot or ankle. There is evidence of triple arthrodesis with stable appearance of hardware. Status post resection of mid 4th metatarsal and 4th toe. JOINTS: Chronic findings. SOFT TISSUES: There is diffuse soft tissue swelling lateral to the 5th metatarsal. OTHER FINDINGS: None. IMPRESSION: Soft tissue swelling lateral to the 5th metatarsal. No other significant interval change.
[2017-12-21 16:46] VITALS: BP 128/70; PULSE 85; RESP 18; TEMP 97.6; O2SAT 98
--- NOTE | 2017-12-25 08:45 | OP ---
PROCEDURE DATE: 12/21/2017 PREOPERATIVE DIAGNOSES: 1. Right foot nonhealing diabetic ulceration. 2. Right foot nonhealing surgical wound. POSTOPERATIVE DIAGNOSES: 1. Right foot nonhealing diabetic ulceration. 2. Right foot nonhealing surgical wound. NAME OF PROCEDURE: 1. Right foot wound debridement with application of allograft. 2. Right foot fifth digit arthroplasty. 3. Right foot complex wound closure. SURGEON: Ilya Lorenzo DPM ASSISTANTS: Lynnette Bermudez DPM, PGY1, Dr. Alexander Kelly, PGY1. TYPE OF ANESTHESIA: IV sedation plus local. ANESTHESIA ADMINISTERED BY: Dr. Castellano. INDICATIONS: The patient is a 47-year-old male with the above diagnoses. The patient has exhausted all conservative treatment at this time and now requires surgical intervention. The patient has signed a consent after careful explanation of risks, benefits, complications, and alternatives for surgical procedure. No guarantees were given nor implied. PREPARATION: The patient was brought into the operating room table and placed on the operating room table in a supine position. A well padded pneumatic ankle tourniquet was applied to the patient's right ankle in the supramalleolar position. A time-out was performed for identification of the correct patient and procedure. After induction of IV sedation, the patient received a total of 7 mL of 0.5% Marcaine plain in a ring block fashion to the plantar midfoot as well as a V block fashion to the right foot fifth digit. Once local anesthesia was achieved, the right foot was then prepped and draped in normal sterile manner. The patient's right foot was then exsanguinated and then pneumatic ankle tourniquet was inflated to 250 mmHg and the procedure begun. DESCRIPTION OF PROCEDURE: Procedure #1: Attention was directed to the plantar midfoot where a circular ulceration measuring approximately 4 cm in diameter was noted. It was evident that there was an extra fibrotic and necrotic tissue with biofilm formation within the wound bed. At this time, the Misonix probe was utilized to excisionally debride all nonviable fibrotic and necrotic tissue from the wound bed with the Misonix setting on the level 10. Additionally, a sterile forceps and sterile #15 blade was utilized to excise all necrotic and nonviable tissue from the wound border. The wound was then copiously irrigated with Bacitracin infusion and was then utilizing a pulse lavage system. The Misonix and pulse lavage was then redirected to a second additional ulceration noted at the plantar aspect of the right foot fourth interspace measuring approximately 2 cm wide x 4 cm in length x approximately 0.3 cm in depth. Once again a Misonix probe was utilized on setting 10 to excisionally debride all nonviable fibrotic and necrotic tissue from the fourth interspace wound bed down to healthy bleeding granular tissue. A pulse lavage was then utilized to copiously irrigate the site with Bacitracin infused sterile saline solution. Procedure #2. Right foot fifth digit arthroplasty. Attention was then directed to the dorsal lateral aspect of the right foot fifth digit where it was noted that the fifth digit was curving in an adductovarus position and placing pressure on the plantar fourth interspace ulceration. Thereby decreasing the chances for healing. At this time, a semi-elliptical incision was made from the distal medial to proximal lateral aspect of the dorsal proximal interphalangeal joint at the right foot fifth digit. The incision was deepened to the subcutaneous tissue with care being taken to identify and retract all vital neurovascular structures. All bleeders were cauterized and ligated as necessary. At this time, it was noted that the pneumatic ankle tourniquet was not providing adequate exsanguination and the tourniquet was deflated at this time. Next, a transverse tenotomy and capsulotomy was performed using proximal interphalangeal joint of the right foot fifth digit. The head of the proximal joint was then freed with capsular and ligament attachment. Next, using a sagittal saw, the head of the proximal phalanx was resected and passed from the operative site. A bone grasp was utilized to smooth the surface of the remaining proximal phalanx. At this time, 4-0 Vicryl sutures were utilized to reapproximate the extensor tendon. A 4-0 nylon sutures were then utilized to reapproximate skin. Procedure #3: Attention was then directed to the plantar fourth interspace with the right foot where an ulceration measuring approximately 2 cm wide x 4 cm in length x 0.5 cm in depth was noted. Following the previous procedure of the right foot fifth digit arthroplasty of the proximal interphalangeal joint, it was evident that this complex wound could be partially closed under minimal tension. The proximal lateral aspect of the wound exhibited healthy wound borders. A sterile 15 blade was utilized to make a 1.5 cm incision extending proximally. A second incision was made measuring 1.5 cm, made approximately 1 cm lateral to the previously mentioned incision. At this time, this newly created skin flap was then flapped in distal lateral direction and reapproximated with 4-0 nylon suture under no skin tension. Both the medial and lateral borders of the skin flap were able to be reapproximated to healthy bleeding granular wound edges and well epithelialized skin. Following partial closure of the wound, the new wound measurements were noted to be 1.2 cm wide x 3 cm in length x 0.5 cm in depth. All surgical sites were then copiously irrigated with sterile saline solution and a bulb syringe. Procedure #4: Application of allograft. Attention was then redirected to the plantar midfoot ulceration. At this time, a 6 cm x 9 cm PuraPly graft was then pressed on the back table and tight in to 2 separate segments thereby allowing graft placement graft was placed within the wound bed and all remaining edges were folded graft products. A PuraPly graft was placed on both reapproximated with Steri-Strips. I then dressed with nonadherent Adaptic dressing, with the third surgical site at the right fifth digit arthroplasty dressed with Betadine-soaked Adaptic. The right foot was then dressed with a dry sterile dressing and then Roger. POSTOPERATIVE CONDITION: The patient tolerated the anesthesia and procedure well and was escorted to the recovery room with vital signs stable and neurovascular status intact to the right foot. The patient will remain nonweightbearing at this time with a use of surgical shoe and crutches. The patient will follow up with Dr. Lorenzo in his office within in one week of surgery. Lynnette Bermudez DPM Ilya Lorenzo DPM
== END 2017-12-21 16:47 | disposition home or self-care (01) ==
LOC: H.OPSURG 08:23
PROVIDERS: ATTEND Podiatrist Foot & Ankle Surgery
DX: T81.31XA Disruption of external operation (surgical) wound, not elsewhere classified, initial encounter (principal); M20.41 Other hammer toe(s) (acquired), right foot; E11.628 Type 2 diabetes mellitus with other skin complications; Z94.0 Kidney transplant status; E78.5 Hyperlipidemia, unspecified; E11.621 Type 2 diabetes mellitus with foot ulcer; L97.519 Non-pressure chronic ulcer of other part of right foot with unspecified severity
CPT/HCPCS: 11042; 13132; 15004; 15275; 36415; 73630; 80048; 82948; 83036; 85025; 85610; 85730; J0690; J2250; J2704; J3010; J7120